=== PATIENT | female | born 1965 | race Caucasian/White ===

== ENCOUNTER 2019-12-12 12:44 | Outpatient (REF) | payer OTHER, SELFPAY ==
--- NOTE | 2019-12-12 13:01 | XR_ITS ---
EXAMINATION: XR HIP, RIGHT CLINICAL INFORMATION: Right hip arthritis. COMPARISON: None TECHNIQUE: Two views of the right hip. FINDINGS: Moderate right hip arthritis, joint space loss, osteophytes, sclerosis. No fracture or dislocation. Mild symphysis pubis degeneration. IMPRESSION: Moderate right hip arthritis.
== END 2019-12-12 12:45 | disposition home or self-care (01) ==
LOC: HO.XRAY 12:44
PROVIDERS: Visit Provider Internal Medicine Medical Oncology
DX: M25.551 Pain in right hip (principal); M16.11 Unilateral primary osteoarthritis, right hip
CPT/HCPCS: 73502